=== PATIENT | female | born 1985 | race Caucasian/White ===

== ENCOUNTER 2024-04-29 09:20 | Day surgery (SDC) | payer OTHER ==
[2024-04-29] MEDS: FERRIC CARBOXYMALTOSE 750 MG in SODIUM CHLORIDE 250 ML IVPB ONE (09:51)
[2024-04-29 11:18] VITALS: RESP 20; TEMP 98.4
[2024-04-29 11:29] VITALS: BP 108/55; PULSE 79
== END 2024-04-29 10:55 | disposition home or self-care (01) ==
LOC: JONCCHEMO 09:20 → J7W 09:43 → JONCCHEMO 10:55
PROVIDERS: ATTEND Internal Medicine Hematology & Oncology
PROC: 3E033GC Introduction of Other Therapeutic Substance into Peripheral Vein, Percutaneous Approach (ICD-10-PCS; principal; 2024-04-29)
DX: D50.9 Iron deficiency anemia, unspecified (principal)
CPT/HCPCS: 96365; J1439

== ENCOUNTER 2024-05-06 12:10 | Day surgery (SDC) | payer OTHER ==
[2024-05-06] MEDS: FERRIC CARBOXYMALTOSE 750 MG in SODIUM CHLORIDE 250 ML IVPB ONE (12:37)
[2024-05-06 17:29] VITALS: BP 113/67; PULSE 87; RESP 20; TEMP 98.5
== END 2024-05-06 13:40 | disposition home or self-care (01) ==
LOC: JONCNONCHE 12:10 → J7W 12:10 → JONCNONCHE 13:40
PROVIDERS: ATTEND Internal Medicine Hematology & Oncology
PROC: 3E033GC Introduction of Other Therapeutic Substance into Peripheral Vein, Percutaneous Approach (ICD-10-PCS; principal; 2024-05-06)
DX: D50.9 Iron deficiency anemia, unspecified (principal)
CPT/HCPCS: 96365; J1439

== ENCOUNTER 2024-11-12 13:50 | Day surgery (SDC) | payer OTHER ==
[2024-11-12] MEDS: FERRIC CARBOXYMALTOSE 750 MG in SODIUM CHLORIDE 250 ML IVPB ONE (14:10)
[2024-11-12 16:52] VITALS: RESP 16; TEMP 98
[2024-11-12 16:54] VITALS: BP 120/60; PULSE 80
== END 2024-11-12 15:00 | disposition home or self-care (01) ==
LOC: JONCCHEMO 13:50 → J7W 14:44 → JONCCHEMO 15:00
PROVIDERS: ATTEND Internal Medicine Hematology & Oncology
PROC: 3E033GC Introduction of Other Therapeutic Substance into Peripheral Vein, Percutaneous Approach (ICD-10-PCS; principal; 2024-11-12)
DX: D50.9 Iron deficiency anemia, unspecified (principal)
CPT/HCPCS: 96365; J1439